=== PATIENT | female | born 1985 | race Caucasian/White ===

== ENCOUNTER 2020-12-31 06:35 | Inpatient (IN) ==
[2020-12-31] MEDS ORDERED: D5 1/2 NS 1000 ML 1,000 ML IV ONE (06:41)
[2020-12-31] MEDS ORDERED: PITOCIN ONE (06:41)
[2020-12-31] MEDS ORDERED: D5LR 1L W PITOCIN 10 UNITS/L 10 UNITS/1,000 ML BAG IV ONE (06:42)
[2020-12-31] MEDS ORDERED: D5 1/2 NS 1L W PITOCIN 20 UNITS/L 20 UNITS/1,000 ML BAG IV ONE (06:42)
[2020-12-31] MEDS ORDERED: STADOL INJ IVP PRN (07:00)
[2020-12-31] MEDS ORDERED: PHENERGAN INJ 25 MG IM PRN ×3 (07:04→12:58)
[2020-12-31] MEDS ORDERED: REGLAN INJ 10 MG VIAL IVP PRN (07:04)
[2020-12-31] MEDS ORDERED: AMPICILLIN VIAL 2 GRAM 2 G in NS 100 ML IV + SPIKE MINIBAG* 100 ML IV SCH (07:04)
[2020-12-31] MEDS ORDERED: PITOCIN IVP ONE (07:04)
[2020-12-31] MEDS ORDERED: D5 1/2 NS 1000 ML 1,000 ML IV SCH (07:04)
[2020-12-31] MEDS ORDERED: NUBAIN INJ 200 MG VIAL MULTIDOSE IVP PRN (07:04)
[2020-12-31] MEDS ORDERED: MORPHINE SULFATE INJ 2 MG INJ IVP PRN (07:04)
[2020-12-31] MEDS ORDERED: AMPICILLIN VIAL 1 GRAM 1 G in NS 50 ML IV + SPIKE MINIBAG* 50 ML IV SCH (07:04)
[2020-12-31] MEDS ORDERED: D5LR 1L W PITOCIN 10 UNITS/L 10 UNITS/1,000 ML BAG IV PRN (07:04)
[2020-12-31] MEDS ORDERED: NS 100 ML IV 100 ML IV ONE ×2 (07:18→11:29)
[2020-12-31] MEDS ORDERED: AMPICILLIN VIAL 2 GRAM ONE (07:18)
--- NOTE | 2020-12-31 07:18 | DR.OB ---
OB Quick Note - Assessment/Plan Assessment/Plan: L&D 12/31/20 at 7:10am S-No complaint. O-Afebrile,VSS WAS=773 with good LTV, +accel, no decel. CTX=none CVX=3cm/75%/-1/VTX AROM with clear fluid. IUPC and FSE placed. A-IUP at 38 5/7 weeks for induction oligohydramnios +GBS Rh- abnormal quad screen P-Begin pitocin induction IV ABX in labor for +GBS Anticipate
[2020-12-31] MEDS ORDERED: LR 1000 ML IV 1,000 ML IV ONE (08:15)
[2020-12-31] MEDS ORDERED: STADOL INJ ONE (08:38)
[2020-12-31] MEDS ORDERED: NAROPIN EPIDURAL 0.2% 100 ML ONE (08:51)
[2020-12-31] MEDS ORDERED: FENTANYL INJ 100 mcg ONE (08:51)
[2020-12-31] MEDS ORDERED: AMPICILLIN VIAL 1 GRAM ONE (11:29)
[2020-12-31] MEDS ORDERED: MOTRIN TAB 800 MG PO PRN ×2 (12:31→12:58)
--- NOTE | 2020-12-31 12:31 | DR.OB ---
OB Quick Note - Assessment/Plan Assessment/Plan: Delivery Note CLAIMS ADJUDICATOR 12/31/20 at 12:17pm Patient complete and pushing. Head delivered over intact perineum. Nose and mouth bulb suctioned. No nuchal cord. Body delivered over intact perineum. Cord clamped x 2 and cut. handed to attendant. Cord sent for gases. Placenta delivered spontaneously / intact / 3 vessel cord. No CVX / vaginal / perineal tears. Viable male , VTX/OA, wt=7'1" and 9/9, stable to NBN. Mother stable to RR. [id number].
[2020-12-31] MEDS ORDERED: D5 1/2 NS 1000 ML 1,000 ML with PITOCIN 20 UNITS IV SCH ×2 (13:00)
[2020-12-31] MEDS ORDERED: ADACEL or BOOSTRIX TDaP VACCINE IM ONE (14:19)
[2020-12-31] MEDS ORDERED: DERMOPLAST PAIN RELIEF SPRAY TOP PRN (14:19)
[2020-12-31] MEDS ORDERED: AMBIEN PO PRN (14:19)
[2020-12-31] MEDS ORDERED: HYPERRHO S/D (or RHOGAM) IM PRN (14:19)
[2020-12-31] MEDS ORDERED: MILK OF MAGNESIA PO PRN (14:19)
[2020-12-31] MEDS: D5 1/2 NS 1000 ML 1,000 ML with PITOCIN 20 UNITS IV SCH ×2 (17:31)
[2020-12-31] MEDS: VSL#3 PO SCH ×2 (17:38)
[2020-12-31] MEDS ORDERED: SINGULAIR TAB 10 MG PO SCH (21:00)
[2020-12-31] MEDS: KENALOG CREAM TOP SCH (21:15)
[2021-01-01 04:48] LABS: HEMATOCRIT 35.2 % (36.0-47.0); HEMOGLOBIN 11.8 g/dL (12.0-16.0)
[2021-01-01] MEDS ORDERED: PRENATAL PLUS PO SCH (09:00)
[2021-01-01] MEDS: D5 1/2 NS 1000 ML 1,000 ML with PITOCIN 20 UNITS IV SCH ×4 (09:53→14:53)
[2021-01-01] MEDS: KENALOG CREAM TOP SCH (09:54)
[2021-01-01] MEDS: VSL#3 PO SCH (09:54)
[2021-01-01 14:52] VITALS: BP 136/90
== END 2021-01-01 14:55 | disposition home or self-care (01) | DRG 806 ==
LOC: LD 06:35 → MED/SURG 14:31
PROVIDERS: ADMIT Specialist; ATTEND Specialist
DX: Z3A.38 38 weeks gestation of pregnancy; O28.5 Abnormal chromosomal and genetic finding on antenatal screening of mother; O36.0930 Maternal care for other rhesus isoimmunization, third trimester, not applicable or unspecified; O99.891 Other specified diseases and conditions complicating pregnancy; B95.1 Streptococcus, group B, as the cause of diseases classified elsewhere; O99.824 Streptococcus B carrier state complicating childbirth; O41.03X0 Oligohydramnios, third trimester, not applicable or unspecified; Z37.0 Single live birth